=== PATIENT | female | born 1990 | race Caucasian/White ===

== ENCOUNTER 2024-01-18 10:51 | Emergency (ER) | payer OTHER, BC ==
[2024-01-18 11:28] VITALS: BP 145/100; PULSE 8; RESP 20; TEMP 98.2; BMI 34.3
[2024-01-18] MEDS: DIPHTH,PERTUSS(ACELL),TET 0.5 ML DISP.SYRIN IM ONE (11:41)
[2024-01-18] MEDS ORDERED: DIPHTH,PERTUSS(ACELL),TET 0.5 ML DISP.SYRIN IM ONE (11:41)
[2024-01-18] MEDS: CEPHALEXIN MONOHYDRATE 500 MG CAPSULE (UD) PO ONE (11:42)
[2024-01-18] MEDS ORDERED: CEPHALEXIN MONOHYDRATE 500 MG CAPSULE (UD) ONE (11:43)
== END 2024-01-18 12:10 | disposition home or self-care (01) ==
LOC: FER 10:51
PROC: 0XQNXZZ Repair Right Index Finger, External Approach (ICD-10-PCS; principal; 2024-01-18)
PROC: 3E0234Z Introduction of Serum, Toxoid and Vaccine into Muscle, Percutaneous Approach (ICD-10-PCS; 2024-01-18)
DX: S61.211A Laceration without foreign body of left index finger without damage to nail, initial encounter (principal); W26.8XXA Contact with other sharp object(s), not elsewhere classified, initial encounter; Y92.219 Unspecified school as the place of occurrence of the external cause
CPT/HCPCS: 90715; 99284-25